=== PATIENT | male | born 1965 | race Caucasian/White ===

== ENCOUNTER → 2018-03-28 15:50 | Outpatient (POV) | payer BC, SELFPAY | DX: Z00.00 Encounter for general adult medical examination without abnormal findings (principal) ==

== ENCOUNTER 2024-02-08 09:23 | Outpatient (CLI) | payer MEDICAID, SELFPAY ==
--- NOTE | 2024-02-08 09:27 | XR_ITS ---
FINAL REPORT CLINICAL HISTORY: Bilat foot pain. Pain is worse in left foot. Swelling. Hx of blood clot in right foot and behind left knee 1 yr ago. FINDINGS: RIGHT FOOT 3 views of the right foot were obtained. There is no acute fracture or dislocation. There are mild degenerative changes. Visualized joint spaces are normally aligned. Soft tissues are unremarkable. IMPRESSION: No acute bony abnormality. Reviewed, Interpreted and Dictated by Tim Ponce III, MD Transcribed by Roberta Carr Authenticated and [facility]
--- NOTE | 2024-02-08 09:27 | XR_ITS ---
FINAL REPORT CLINICAL HISTORY: Bilat foot pain. Pain is worse in left foot. Swelling. Hx of blood clot in right foot and behind left knee 1 yr ago. FINDINGS: LEFT FOOT Three views of the left foot demonstrate no acute fracture or dislocation. There are mild degenerative changes. The visualized joint spaces are normally aligned. The soft tissues are unremarkable. IMPRESSION: No acute bony abnormality. Reviewed, Interpreted and Dictated by Tim Ponce III, MD Transcribed by Roberta Carr Authenticated and . [facility]
== END 2024-02-08 23:59 ==
LOC: LAB 09:24
PROVIDERS: PCP Family Medicine; Visit Provider Nurse Practitioner
DX: M79.671 Pain in right foot (principal); M79.672 Pain in left foot
CPT/HCPCS: 73630